=== PATIENT | female | born 1950 | race Caucasian/White ===

== ENCOUNTER 2017-12-18 13:18 | Inpatient (IN) ==
[2017-12-18] MEDS ORDERED: MORPHINE 2 MG/1 ML SYRINGE IV STA (14:28)
[2017-12-18] MEDS ORDERED: NITROGLYCERIN 2% OINT 1 INCH/GM PACK TOP STA (14:28)
[2017-12-18] MEDS ORDERED: ONDANSETRON 4 MG/2 ML VIAL IV STA (14:28)
[2017-12-18] MEDS ORDERED: FUROSEMIDE 100 MG/10 ML VIAL IV STA (14:28)
[2017-12-18] MEDS ORDERED: methylPREDNISolone SOD SUC 125 MG/2 ML VIAL IV STA (14:28)
[2017-12-18] MEDS ORDERED: cefTRIAXone 1,000 MG in SODIUM CHLORIDE 0.9% 100 ML IV STA (14:28)
[2017-12-18] MEDS ORDERED: ALBUTEROL 2.5 MG/3 ML NEB RESP TX SCH (14:30)
[2017-12-18] MEDS ORDERED: cefTRIAXone 1,000 MG VIAL ONE (14:53)
[2017-12-18 15:06] LABS: ABG Base Excess -0.5 MMOL/L (-2.5-2.5); ABG Oxygen Saturation 98.4 % (95-100); ABG PCO2 40.7 MM HG (35-48); ABG PH 7.387 (7.35-7.45); ABG TCO2 21.6 MMOL/L (23-27); Allen Test Positive
[2017-12-18] MEDS ORDERED: NITROGLYCERIN 2% OINT 1 INCH/GM PACK TOP ONE (15:19)
[2017-12-18] MEDS ORDERED: ONDANSETRON 4 MG/2 ML VIAL ONE (15:20)
[2017-12-18] MEDS ORDERED: FUROSEMIDE 100 MG/10 ML VIAL ONE (15:20)
[2017-12-18] MEDS ORDERED: methylPREDNISolone SOD SUC 125 MG/2 ML VIAL ONE (15:20)
[2017-12-18] MEDS ORDERED: MORPHINE 2 MG/1 ML SYRINGE ONE (15:20)
[2017-12-18] MEDS ORDERED: hydrALAZINE 20 MG/1 ML VIAL ONE (15:41)
[2017-12-18] MEDS ORDERED: hydrALAZINE 20 MG/1 ML VIAL IV STA (15:45)
[2017-12-18 15:55] LABS: Basophils # 0.1 10*3/uL (0.0-0.2); Basophils % 0.5 % (0.0-0.8); Eosinophils % 0.1 % (0.00-10.9); Hematocrit 38.3 VOL% (35.7-47.0); Hemoglobin 12.1 GM/DL (12.0-16.0); Immature Granulocytes % 0.5 %; Immature Granulocytes Absolute 0.05 #; Lymphocytes # 1.6 10*3/uL (1.4-4.0); Lymphocytes % 14.9 % (21.3-54.2); Mean Corpuscular HGB Conc 31.6 GM/DL (32-36); Mean Corpuscular Hemoglobin 27 PG (27-34); Mean Corpuscular Volume 85.1 FL (87-102); Mean Platelet Volume 11.2 FL (9.6-12.0); Monocytes # 0.5 10*3/uL (0.11-0.8); Monocytes % 4.7 % (1.7-12.7); Neutrophils # 8.7 10*3/uL (1.4-7.4); Neutrophils % 79.3 % (38.7-73.9); Platelet Count 224 T/CUMM (130-400); Red Cell Distribution Width 16.1 % (9.3-17.3)
[2017-12-18 16:02] LABS: INR 1.1; PT Patient Result 11.2 SECS
[2017-12-18 16:26] LABS: Alanine Aminotransferase 21 U/L (13-56); Albumin 3.7 G/DL (3.4-5.0); Alkaline Phosphatase 104 U/L (45-117); Aspartate Amino Transferase 31 U/L (0-37); Blood Urea Nitrogen 25 MG/DL (7-18); Calcium 8.7 MG/DL (8.5-10.1); Glucose 310 MG/DL (74-106); Osmolality,Calculated 294.4 MOS/KG (273-304); Potassium 3.8 MMOL/L (3.5-5.1); Sodium 140 MMOL/L (136-145); Total Protein 7.3 G/DL (6.4-8.3)
[2017-12-18 16:33] LABS: Troponin I Only 0.831 NG/ML (0.00-0.045)
[2017-12-18 16:39] LABS: Lactic Acid 5.1 MMOL/L (0.4-2.0)
[2017-12-18] MEDS ORDERED: ENOXAPARIN 40 MG/0.4 ML SYRINGE SUBCUT SCH (16:42)
[2017-12-18] MEDS ORDERED: diphenhydrAMINE CAP 25 MG CAPSULE PO PRN (16:42)
[2017-12-18] MEDS ORDERED: DEXTROSE 50% 25 GM/50 ML VIAL IV PRN (16:42)
[2017-12-18] MEDS ORDERED: ALBUTEROL 2.5 MG/3 ML NEB RESP TX PRN (16:42)
[2017-12-18] MEDS ORDERED: NITROGLYCERIN SL 0.4 MG TABLET SL PRN (16:42)
[2017-12-18] MEDS ORDERED: ASPIRIN 325 MG TABLET PO SCH (16:42)
[2017-12-18] MEDS ORDERED: GLUCAGON 1 MG VIAL IM PRN (16:42)
[2017-12-18 18:15] LABS: Risk Ratio 3.91; Thyroid Stimulating Hormone 2.25 uIU/ml (0.358-3.74); VLDL CHOLESTEROL 25.2 MG/DL
[2017-12-18 18:25] LABS: CKMB % 5.4 %
[2017-12-18 18:31] LABS: Troponin I Only 0.735 NG/ML (0.00-0.045)
[2017-12-18] MEDS: PANTOPRAZOLE 40 MG TABLET PO SCH (19:06)
[2017-12-18] MEDS: FUROSEMIDE 40 MG/4 ML VIAL IV SCH (19:06)
[2017-12-18] MEDS: ASPIRIN EC 81 MG TABLET PO SCH (19:06)
[2017-12-18] MEDS: CLOPIDOGREL 75 MG TABLET PO SCH (19:06)
[2017-12-18] MEDS: methylPREDNISolone SOD SUC 125 MG/2 ML VIAL IV SCH (19:07)
[2017-12-18] MEDS: INSULIN REGULAR 100 UNIT/ML SUBCUT SCH (19:23)
[2017-12-18 19:59] LABS: Lactic Acid 7.4 MMOL/L (0.4-2.0)
[2017-12-18] MEDS: hydrALAZINE 25 MG TABLET PO SCH (20:37)
[2017-12-18] MEDS: AMITRIPTYLINE 25 MG TABLET PO SCH (20:37)
[2017-12-18] MEDS: amLODIPine 5 MG TABLET PO SCH (20:37)
[2017-12-18 20:49] LABS: Apearance,Urine CLEAR (Clear); Bacteria,Urine Occasional /HPF (Few); Bilirubin,Urine Negative (Negative); Blood, Urine Small mg/dL (Negative); Glucose,Urine (UA) >=500 mg/dL (Negative); Hyaline Casts,Urine 16 /LPF (0-3); Ketones,Urine 5 mg/dL (Negative); Mucus,Urine Occasional /LPF (Occasional); Nitrite,Urine Negative (Negative); Protein,Urine 30 MG/DL; RBC,Urine 3 /HPF (0-4); Squamous Epithelial Cell,Urine Occasional /HPF (0-10); Urine Color Straw (Yellow); Urine Specific Gravity 1.009 (1.001-1.035); Urine Urobilinogen < 2.0 EU/DL (0.2-1.0); WBC,Urine 12 /HPF (0-6)
[2017-12-18] MEDS ORDERED: ISOSORBIDE DINITRATE 20 MG TABLET PO SCH (21:00)
[2017-12-18] MEDS ORDERED: ISOSORBIDE DINITRATE SR 40 MG TABLET PO SCH (21:00)
[2017-12-18] MEDS: ISOSORBIDE DINITRATE 20 MG TABLET PO SCH (21:20)
[2017-12-18] MEDS: PIPERACILLIN/TAZOBACTAM 3,375 MG in SODIUM CHLORIDE 0.9% 100 ML IV SCH (21:20)
[2017-12-18] MEDS ORDERED: ALUMINUM/MAGNES/SIMETH MAX STR 30 ML UDCUP PO PRN (21:38)
[2017-12-18] MEDS ORDERED: ALUM/MAG/SIMETH/LIDO VISC 1:1 30 ML BOTTLE PO ONE (21:38)
[2017-12-19 00:13] LABS: Lactic Acid 5.6 MMOL/L (0.4-2.0)
[2017-12-19] MEDS ORDERED: INSULIN REGULAR 100 UNIT/ML ONE (00:32)
[2017-12-19] MEDS: INSULIN REGULAR 100 UNIT/ML SUBCUT SCH ×5 (00:35→17:00)
[2017-12-19] MEDS: traMADol 50 MG TABLET PO PRN ×2 (01:26→10:32)
[2017-12-19 03:08] LABS: Hematocrit 32.6 VOL% (35.7-47.0); Hemoglobin 10.4 GM/DL (12.0-16.0); Immature Granulocytes % 0.3 %; Immature Granulocytes Absolute 0.02 #; Lymphocytes # 0.4 10*3/uL (1.4-4.0); Lymphocytes % 6.5 % (21.3-54.2); Mean Corpuscular HGB Conc 31.9 GM/DL (32-36); Mean Corpuscular Hemoglobin 27 PG (27-34); Mean Corpuscular Volume 84.2 FL (87-102); Mean Platelet Volume 11.2 FL (9.6-12.0); Monocytes # 0.1 10*3/uL (0.11-0.8); Monocytes % 1.6 % (1.7-12.7); Neutrophils # 6.2 10*3/uL (1.4-7.4); Neutrophils % 91.6 % (38.7-73.9); Platelet Count 180 T/CUMM (130-400); Red Blood Count 3.87 MC/CUMM (3.8-5.5); Red Cell Distribution Width 16.4 % (9.3-17.3); White Blood Count 6.7 T/CUMM (4-12)
[2017-12-19 03:34] LABS: Albumin 3.4 G/DL (3.4-5.0); Bilirubin,Total 0.6 MG/DL (0.2-1.0); Calcium 8.1 MG/DL (8.5-10.1); Osmolality,Calculated 302.7 MOS/KG (273-304); Potassium 3.3 MMOL/L (3.5-5.1); Total Protein 6.9 G/DL (6.4-8.3)
[2017-12-19] MEDS ORDERED: INSULIN REGULAR 100 UNIT/ML SUBCUT ONE (03:38)
[2017-12-19 04:05] LABS: Lymphocytes 3 % (20-55); Platelet Estimate Normal; Segmented Neutrophils 97 % (50-85); Total Cells Counted 100
[2017-12-19 04:06] LABS: Polychromasia Few
[2017-12-19] MEDS: methylPREDNISolone SOD SUC 125 MG/2 ML VIAL IV SCH ×2 (04:20→16:29)
[2017-12-19 04:39] LABS: Troponin I Only 1.18 NG/ML (0.00-0.045)
[2017-12-19] MEDS: ENOXAPARIN 40 MG/0.4 ML SYRINGE SUBCUT SCH ×2 (05:13→16:28)
[2017-12-19] MEDS: PIPERACILLIN/TAZOBACTAM 3,375 MG in SODIUM CHLORIDE 0.9% 100 ML IV SCH ×3 (05:13→22:02)
[2017-12-19] MEDS: FUROSEMIDE 40 MG/4 ML VIAL IV SCH ×2 (10:30→16:15)
[2017-12-19] MEDS: ASPIRIN EC 81 MG TABLET PO SCH (10:31)
[2017-12-19] MEDS: hydrALAZINE 25 MG TABLET PO SCH ×3 (10:31→22:03)
[2017-12-19] MEDS: CHOLECALCIFEROL 400 UNIT TABLET PO SCH (10:31)
[2017-12-19] MEDS: amLODIPine 5 MG TABLET PO SCH ×2 (10:31→22:02)
[2017-12-19] MEDS: PANTOPRAZOLE 40 MG TABLET PO SCH (10:31)
[2017-12-19] MEDS: ASCORBIC ACID 500 MG TABLET PO SCH (10:31)
[2017-12-19] MEDS: ISOSORBIDE DINITRATE 20 MG TABLET PO SCH ×3 (10:31→22:02)
[2017-12-19] MEDS: PREGABALIN 75 MG CAPSULE PO SCH (10:32)
[2017-12-19] MEDS: CLOPIDOGREL 75 MG TABLET PO SCH (10:32)
[2017-12-19] MEDS ORDERED: MORPHINE 2 MG/1 ML SYRINGE ONE (10:42)
[2017-12-19] MEDS ORDERED: methylPREDNISolone SOD SUC 40 MG/1 ML VIAL ONE (10:44)
[2017-12-19] MEDS ORDERED: LORazepam 2 MG/1 ML VIAL ONE (10:45)
[2017-12-19] MEDS ORDERED: LEVALBUTEROL 1.25 MG/3 ML NEB RESP TX ONE (10:46)
[2017-12-19] MEDS ORDERED: NITROGLYCERIN 2% OINT 1 INCH/GM PACK TOP ONE (10:52)
[2017-12-19] MEDS ORDERED: NITROGLYCERIN DRIP 50 MG/250 ML BOTTLE IV ONE (10:56)
[2017-12-19] MEDS: NITROGLYCERIN DRIP 50 MG/250 ML BOTTLE IV SCH (11:00)
[2017-12-19] MEDS ORDERED: LORazepam 2 MG/1 ML VIAL IV ONE (11:09)
[2017-12-19] MEDS ORDERED: MORPHINE 2 MG/1 ML SYRINGE IV ONE (11:10)
[2017-12-19] MEDS ORDERED: methylPREDNISolone SOD SUC 40 MG/1 ML VIAL IV ONE (11:12)
[2017-12-19 11:17] LABS: ABG Base Excess 2.9 MMOL/L (-2.5-2.5); ABG HCO3 27.8 MMOL/L (20-26); ABG Oxygen Saturation 91.6 % (95-100); ABG PCO2 43.9 MM HG (35-48); ABG PH 7.419 (7.35-7.45); ABG PO2 66.6 MM HG (80-95); ABG TCO2 29.1 MMOL/L (23-27); Allen Test Positive; Pt O2 Delivery Device Venturi Mask
[2017-12-19] MEDS ORDERED: LIDOCAINE 1% 20 ML VIAL ONE (12:01)
[2017-12-19] MEDS ORDERED: fentaNYL 100 MCG/2 ML VIAL ONE (12:01)
[2017-12-19] MEDS ORDERED: MIDAZOLAM 2 MG/2 ML VIAL ONE (12:02)
[2017-12-19] MEDS ORDERED: ENOXAPARIN 60 MG/0.6 ML SYRINGE ONE (12:14)
[2017-12-19] MEDS ORDERED: TIROFIBAN 5,000 MCG/100 ML PREMIX IV ONE (12:14)
[2017-12-19] MEDS ORDERED: METOPROLOL TARTRATE 5 MG/5 ML VIAL IV ONE (12:22)
[2017-12-19] MEDS ORDERED: SODIUM CHLORIDE 0.9% 1,000 ML IV SCH (13:30)
[2017-12-19] MEDS: AMITRIPTYLINE 25 MG TABLET PO SCH (22:02)
[2017-12-20] MEDS: INSULIN REGULAR 100 UNIT/ML SUBCUT SCH ×7 (01:11→20:28)
[2017-12-20 05:33] LABS: Hematocrit 30.8 VOL% (35.7-47.0); Hemoglobin 9.6 GM/DL (12.0-16.0); Immature Granulocytes % 0.7 %; Immature Granulocytes Absolute 0.07 #; Lymphocytes # 0.4 10*3/uL (1.4-4.0); Lymphocytes % 3.9 % (21.3-54.2); Mean Corpuscular HGB Conc 31.2 GM/DL (32-36); Mean Corpuscular Hemoglobin 27 PG (27-34); Mean Platelet Volume 11.3 FL (9.6-12.0); Monocytes # 0.3 10*3/uL (0.11-0.8); Monocytes % 2.7 % (1.7-12.7); Neutrophils # 9.4 10*3/uL (1.4-7.4); Neutrophils % 92.7 % (38.7-73.9); Platelet Count 167 T/CUMM (130-400); Red Blood Count 3.58 MC/CUMM (3.8-5.5); White Blood Count 10.1 T/CUMM (4-12)
[2017-12-20] MEDS: methylPREDNISolone SOD SUC 125 MG/2 ML VIAL IV SCH ×2 (06:00→17:00)
[2017-12-20] MEDS: ENOXAPARIN 40 MG/0.4 ML SYRINGE SUBCUT SCH ×2 (06:01→18:01)
[2017-12-20] MEDS: PIPERACILLIN/TAZOBACTAM 3,375 MG in SODIUM CHLORIDE 0.9% 100 ML IV SCH ×2 (06:01→15:37)
[2017-12-20 06:06] LABS: Hypochromasia 1+; Lymphocytes 2 % (20-55); Ovalocytes Slight; Platelet Estimate Normal; Segmented Neutrophils 97 % (50-85); Total Cells Counted 100
[2017-12-20 06:07] LABS: Microcytosis Slight
[2017-12-20 06:27] LABS: Calcium 7.8 MG/DL (8.5-10.1); Osmolality,Calculated 307.3 MOS/KG (273-304); Potassium 3.6 MMOL/L (3.5-5.1)
[2017-12-20] MEDS: FUROSEMIDE 40 MG/4 ML VIAL IV SCH ×2 (09:25→15:30)
[2017-12-20] MEDS: CHOLECALCIFEROL 400 UNIT TABLET PO SCH (09:27)
[2017-12-20] MEDS: ASPIRIN EC 81 MG TABLET PO SCH (09:27)
[2017-12-20] MEDS: ISOSORBIDE DINITRATE 20 MG TABLET PO SCH ×3 (09:27→20:27)
[2017-12-20] MEDS: PREGABALIN 75 MG CAPSULE PO SCH (09:27)
[2017-12-20] MEDS: CLOPIDOGREL 75 MG TABLET PO SCH (09:27)
[2017-12-20] MEDS: ASCORBIC ACID 500 MG TABLET PO SCH (09:27)
[2017-12-20] MEDS: amLODIPine 5 MG TABLET PO SCH (09:27)
[2017-12-20] MEDS: hydrALAZINE 25 MG TABLET PO SCH ×4 (09:28→20:27)
[2017-12-20] MEDS: PANTOPRAZOLE 40 MG TABLET PO SCH (09:28)
[2017-12-20] MEDS: LORazepam 2 MG/1 ML VIAL IV PRN ×2 (09:29→20:32)
[2017-12-20] MEDS: NITROGLYCERIN DRIP 50 MG/250 ML BOTTLE IV SCH (11:38)
[2017-12-20] MEDS: METOPROLOL TARTRATE 25 MG TABLET PO SCH ×2 (12:22→20:27)
[2017-12-20] MEDS: VANCOMYCIN INJ 1,000 MG in SODIUM CHLORIDE 0.9% 250 ML IV ONE ×2 (12:30→17:00)
[2017-12-20] MEDS ORDERED: metOLazone 5 MG TABLET PO SCH (14:00)
[2017-12-20] MEDS: MORPHINE 2 MG/1 ML SYRINGE IV PRN (15:09)
[2017-12-20] MEDS ORDERED: metOLazone 5 MG TABLET PO ONE (20:00)
[2017-12-20] MEDS: ATORVASTATIN 40 MG TABLET PO SCH (20:27)
[2017-12-20] MEDS: AMITRIPTYLINE 25 MG TABLET PO SCH (20:27)
[2017-12-20] MEDS: INSULIN GLARGINE 100 UNIT/ML SUBCUT SCH (20:28)
[2017-12-21] MEDS: INSULIN REGULAR 100 UNIT/ML SUBCUT SCH ×7 (01:18→23:02)
[2017-12-21] MEDS: MORPHINE 2 MG/1 ML SYRINGE IV PRN ×2 (01:19→21:16)
[2017-12-21] MEDS: PIPERACILLIN/TAZOBACTAM 3,375 MG in SODIUM CHLORIDE 0.9% 100 ML IV SCH ×3 (01:24→17:30)
[2017-12-21 05:24] LABS: Hematocrit 32.2 VOL% (35.7-47.0); Hemoglobin 10.1 GM/DL (12.0-16.0); Immature Granulocytes % 0.5 %; Immature Granulocytes Absolute 0.05 #; Lymphocytes # 0.4 10*3/uL (1.4-4.0); Lymphocytes % 4.3 % (21.3-54.2); Mean Corpuscular HGB Conc 31.4 GM/DL (32-36); Mean Corpuscular Hemoglobin 27 PG (27-34); Mean Corpuscular Volume 85.2 FL (87-102); Mean Platelet Volume 10.8 FL (9.6-12.0); Monocytes # 0.4 10*3/uL (0.11-0.8); Monocytes % 4.2 % (1.7-12.7); Neutrophils # 8.9 10*3/uL (1.4-7.4); Platelet Count 175 T/CUMM (130-400); Red Blood Count 3.78 MC/CUMM (3.8-5.5); Red Cell Distribution Width 15.8 % (9.3-17.3); White Blood Count 9.8 T/CUMM (4-12)
[2017-12-21] MEDS: ENOXAPARIN 40 MG/0.4 ML SYRINGE SUBCUT SCH ×2 (05:56→17:12)
[2017-12-21] MEDS: methylPREDNISolone SOD SUC 125 MG/2 ML VIAL IV SCH (05:56)
[2017-12-21 06:01] LABS: Giant Platelets Few; Hypochromasia 1+; Lymphocytes 9 % (20-55); Microcytosis Slight; Ovalocytes Slight; Platelet Estimate Normal; Segmented Neutrophils 83 % (50-85); Total Cells Counted 100
[2017-12-21 06:42] LABS: Calcium 8.2 MG/DL (8.5-10.1); Osmolality,Calculated 298.4 MOS/KG (273-304); Potassium 3.1 MMOL/L (3.5-5.1)
[2017-12-21] MEDS: FUROSEMIDE 40 MG/4 ML VIAL IV SCH ×2 (08:28→17:07)
[2017-12-21] MEDS ORDERED: metOLazone 5 MG TABLET PO ONE ×2 (09:00→15:20)
[2017-12-21] MEDS ORDERED: amLODIPine 5 MG TABLET PO SCH (09:00)
[2017-12-21] MEDS: INSULIN GLARGINE 100 UNIT/ML SUBCUT SCH ×2 (09:07→21:18)
[2017-12-21] MEDS: CLOPIDOGREL 75 MG TABLET PO SCH (09:08)
[2017-12-21] MEDS: hydrALAZINE 25 MG TABLET PO SCH ×4 (09:08→21:15)
[2017-12-21] MEDS: PANTOPRAZOLE 40 MG TABLET PO SCH (09:08)
[2017-12-21] MEDS: ASCORBIC ACID 500 MG TABLET PO SCH (09:09)
[2017-12-21] MEDS: PREGABALIN 75 MG CAPSULE PO SCH (09:09)
[2017-12-21] MEDS: ISOSORBIDE DINITRATE 20 MG TABLET PO SCH ×3 (09:09→21:21)
[2017-12-21] MEDS: ASPIRIN EC 81 MG TABLET PO SCH (09:10)
[2017-12-21] MEDS: METOPROLOL TARTRATE 25 MG TABLET PO SCH ×2 (09:11→21:15)
[2017-12-21] MEDS: CHOLECALCIFEROL 400 UNIT TABLET PO SCH (09:18)
[2017-12-21] MEDS: POTASSIUM CHLORIDE 20 MEQ TABLET PO PRN ×4 (10:39→17:12)
[2017-12-21] MEDS ORDERED: POTASSIUM CHLORIDE 20 MEQ TABLET PO ONE (12:05)
[2017-12-21] MEDS ORDERED: metOLazone 5 MG TABLET PO SCH (14:00)
[2017-12-21] MEDS: methylPREDNISolone SOD SUC 40 MG/1 ML VIAL IV SCH (17:12)
[2017-12-21] MEDS: amLODIPine 5 MG TABLET PO SCH (21:15)
[2017-12-21] MEDS: ATORVASTATIN 40 MG TABLET PO SCH (21:15)
[2017-12-21] MEDS: AMITRIPTYLINE 25 MG TABLET PO SCH (21:21)
[2017-12-21] MEDS: LORazepam 2 MG/1 ML VIAL IV PRN (23:46)
[2017-12-22] MEDS: POTASSIUM CHLORIDE 20 MEQ TABLET PO PRN ×2 (01:36→05:21)
[2017-12-22] MEDS: PIPERACILLIN/TAZOBACTAM 3,375 MG in SODIUM CHLORIDE 0.9% 100 ML IV SCH ×2 (01:37→10:47)
[2017-12-22] MEDS: ENOXAPARIN 40 MG/0.4 ML SYRINGE SUBCUT SCH ×2 (05:21→16:40)
[2017-12-22] MEDS: methylPREDNISolone SOD SUC 40 MG/1 ML VIAL IV SCH (05:21)
[2017-12-22 06:09] LABS: Hematocrit 35.9 VOL% (35.7-47.0); Immature Granulocytes % 0.4 %; Immature Granulocytes Absolute 0.03 #; Lymphocytes # 0.5 10*3/uL (1.4-4.0); Lymphocytes % 6.2 % (21.3-54.2); Mean Corpuscular HGB Conc 33.4 GM/DL (32-36); Mean Corpuscular Hemoglobin 27 PG (27-34); Mean Corpuscular Volume 80.1 FL (87-102); Mean Platelet Volume 11.4 FL (9.6-12.0); Monocytes # 0.7 10*3/uL (0.11-0.8); Monocytes % 9.2 % (1.7-12.7); Neutrophils # 6.7 10*3/uL (1.4-7.4); Neutrophils % 84.2 % (38.7-73.9); Platelet Count 179 T/CUMM (130-400); Red Blood Count 4.48 MC/CUMM (3.8-5.5)
[2017-12-22 06:47] LABS: Calcium 8.7 MG/DL (8.5-10.1); Osmolality,Calculated 300.8 MOS/KG (273-304); Potassium 3.5 MMOL/L (3.5-5.1)
[2017-12-22] MEDS: NITROGLYCERIN DRIP 50 MG/250 ML BOTTLE IV SCH (10:31)
[2017-12-22] MEDS: ISOSORBIDE DINITRATE 20 MG TABLET PO SCH ×3 (10:44→21:11)
[2017-12-22] MEDS: PREGABALIN 75 MG CAPSULE PO SCH (10:44)
[2017-12-22] MEDS: CLOPIDOGREL 75 MG TABLET PO SCH (10:44)
[2017-12-22] MEDS: CHOLECALCIFEROL 400 UNIT TABLET PO SCH (10:44)
[2017-12-22] MEDS: ISOSORBIDE MONONITRATE 60 MG TABLET PO SCH (10:44)
[2017-12-22] MEDS: ASCORBIC ACID 500 MG TABLET PO SCH (10:45)
[2017-12-22] MEDS: amLODIPine 5 MG TABLET PO SCH ×2 (10:45→21:11)
[2017-12-22] MEDS: PANTOPRAZOLE 40 MG TABLET PO SCH (10:45)
[2017-12-22] MEDS: ASPIRIN EC 81 MG TABLET PO SCH (10:45)
[2017-12-22] MEDS: hydrALAZINE 25 MG TABLET PO SCH ×4 (10:45→21:11)
[2017-12-22] MEDS: METOPROLOL TARTRATE 25 MG TABLET PO SCH ×2 (10:45→21:11)
[2017-12-22] MEDS: LOSARTAN 25 MG TABLET PO SCH (10:45)
[2017-12-22] MEDS: FUROSEMIDE 40 MG/4 ML VIAL IV SCH (10:46)
[2017-12-22] MEDS: INSULIN GLARGINE 100 UNIT/ML SUBCUT SCH (10:47)
[2017-12-22] MEDS: INSULIN REGULAR 100 UNIT/ML SUBCUT SCH ×4 (11:40→21:13)
[2017-12-22] MEDS ORDERED: INSULIN GLARGINE 100 UNIT/ML SUBCUT SCH ×2 (12:10→12:11)
[2017-12-22] MEDS: traMADol 50 MG TABLET PO PRN (13:28)
[2017-12-22] MEDS: LEVOFLOXACIN 250 MG TABLET PO SCH (13:29)
[2017-12-22] MEDS: predniSONE 20 MG TABLET PO SCH (13:29)
[2017-12-22] MEDS ORDERED: INSULIN NPH 100 UNIT/ML SUBCUT SCH (17:30)
[2017-12-22] MEDS: AMITRIPTYLINE 25 MG TABLET PO SCH (21:11)
[2017-12-22] MEDS: INSULIN LISPRO 100 UNIT/ML SUBCUT SCH (21:12)
[2017-12-22] MEDS: ATORVASTATIN 40 MG TABLET PO SCH (21:13)
[2017-12-23] MEDS: LORazepam 2 MG/1 ML VIAL IV PRN ×2 (01:42→22:02)
[2017-12-23] MEDS: ENOXAPARIN 40 MG/0.4 ML SYRINGE SUBCUT SCH ×2 (06:25→17:39)
[2017-12-23] MEDS: ASPIRIN EC 81 MG TABLET PO SCH (09:51)
[2017-12-23] MEDS: CHOLECALCIFEROL 400 UNIT TABLET PO SCH (09:51)
[2017-12-23] MEDS: ISOSORBIDE DINITRATE 20 MG TABLET PO SCH ×3 (09:51→22:13)
[2017-12-23] MEDS: CLOPIDOGREL 75 MG TABLET PO SCH (09:51)
[2017-12-23] MEDS: ASCORBIC ACID 500 MG TABLET PO SCH (09:51)
[2017-12-23] MEDS: ISOSORBIDE MONONITRATE 60 MG TABLET PO SCH (09:51)
[2017-12-23] MEDS: hydrALAZINE 25 MG TABLET PO SCH ×3 (09:52→17:39)
[2017-12-23] MEDS: PANTOPRAZOLE 40 MG TABLET PO SCH (09:52)
[2017-12-23] MEDS: PREGABALIN 75 MG CAPSULE PO SCH (09:52)
[2017-12-23] MEDS: LOSARTAN 25 MG TABLET PO SCH (09:52)
[2017-12-23] MEDS: predniSONE 20 MG TABLET PO SCH (09:52)
[2017-12-23] MEDS: LEVOFLOXACIN 250 MG TABLET PO SCH (09:52)
[2017-12-23] MEDS: METOPROLOL TARTRATE 25 MG TABLET PO SCH (09:52)
[2017-12-23] MEDS: amLODIPine 5 MG TABLET PO SCH (09:52)
[2017-12-23] MEDS: FUROSEMIDE 80 MG TABLET PO SCH (09:52)
[2017-12-23] MEDS: INSULIN REGULAR 100 UNIT/ML SUBCUT SCH ×6 (09:53→22:04)
[2017-12-23] MEDS: INSULIN LISPRO 100 UNIT/ML SUBCUT SCH ×2 (09:53→14:33)
[2017-12-23] MEDS: INSULIN GLARGINE 100 UNIT/ML SUBCUT SCH ×2 (15:30→22:04)
[2017-12-23] MEDS: AMITRIPTYLINE 25 MG TABLET PO SCH (22:05)
[2017-12-23] MEDS: ATORVASTATIN 40 MG TABLET PO SCH (22:15)
[2017-12-24] MEDS: hydrALAZINE 25 MG TABLET PO SCH ×3 (02:15→13:03)
[2017-12-24] MEDS: METOPROLOL TARTRATE 25 MG TABLET PO SCH ×2 (02:16→09:21)
[2017-12-24] MEDS: amLODIPine 5 MG TABLET PO SCH ×2 (02:16→09:20)
[2017-12-24] MEDS: ENOXAPARIN 40 MG/0.4 ML SYRINGE SUBCUT SCH (06:01)
[2017-12-24] MEDS: ASPIRIN EC 81 MG TABLET PO SCH (09:20)
[2017-12-24] MEDS: ASCORBIC ACID 500 MG TABLET PO SCH (09:20)
[2017-12-24] MEDS: CLOPIDOGREL 75 MG TABLET PO SCH (09:20)
[2017-12-24] MEDS: CHOLECALCIFEROL 400 UNIT TABLET PO SCH (09:20)
[2017-12-24] MEDS: ISOSORBIDE MONONITRATE 60 MG TABLET PO SCH (09:20)
[2017-12-24] MEDS: PANTOPRAZOLE 40 MG TABLET PO SCH (09:20)
[2017-12-24] MEDS: LEVOFLOXACIN 250 MG TABLET PO SCH (09:20)
[2017-12-24] MEDS: predniSONE 20 MG TABLET PO SCH (09:21)
[2017-12-24] MEDS: LOSARTAN 25 MG TABLET PO SCH (09:21)
[2017-12-24] MEDS: FUROSEMIDE 80 MG TABLET PO SCH (09:21)
[2017-12-24] MEDS: PREGABALIN 75 MG CAPSULE PO SCH (09:21)
[2017-12-24] MEDS: ISOSORBIDE DINITRATE 20 MG TABLET PO SCH ×2 (09:21→15:37)
[2017-12-24] MEDS: INSULIN GLARGINE 100 UNIT/ML SUBCUT SCH (09:22)
[2017-12-24] MEDS: INSULIN REGULAR 100 UNIT/ML SUBCUT SCH ×4 (09:22→13:03)
[2017-12-24 12:10] VITALS: BP 110/59
[2017-12-24] MEDS: traMADol 50 MG TABLET PO PRN (14:51)
== END 2017-12-24 16:35 | disposition home or self-care (01) | DRG 871 ==
LOC: EDUNIT# → EDSEX → EDBD → N.ED 13:18 → N.EDINP 14:50 → N.CC 16:39 → N.TELEN 12-21 23:15
PROVIDERS: ADMIT Internal Medicine; ATTEND Internal Medicine
PROC: CLCCHCL (ICD-10-PCS; 2017-12-19 12:15)